=== PATIENT | male | born 1995 | race Caucasian/White ===

== ENCOUNTER 2016-08-02 10:17 | Emergency (ER) | payer BC ==
[~2016-08-02] VITALS: Ht 170.2 cm; Wt 73.5 kg
[~2016-08-02 10:17] MED LIST: ACET500C5 PO; AZIT250T94 PO; CIPR500T4 PO; LOPE2CAP PO; METR500T PO; NAPR-688 PO; NO MEDS
[2016-08-02 10:19] VITALS: Ht 170.2 cm; Wt 73.5 kg
[2016-08-02] MEDS ORDERED: IBUP-1542 PO (11:27)
[2016-08-02] MEDS ORDERED: IBUPROFEN 600 MG TAB PO ONE (11:30)
--- NOTE | 2016-08-02 11:54 | ERD ---
ER Documentation Chief Complaint Date/Time DATE: 08/02/16 TIME: 11:49 Chief Complaint right shoulder pain from playing soccer HPI Patient is a 21-year-old male who presents to the ED with right shoulder pain after playing soccer yesterday. He states that he fell on his shoulder and developed pain to the right shoulder. He states that he is able to move his arm in all directions but with pain. Denies fever chills. Denies radiation of pain down his arm. Denies pain in his elbow or wrist or neck. No previous injury to his shoulder in the past. Denies numbness or tingling. He is not taking anything for his symptoms. ROS All systems reviewed and are negative except as per history of present illness. Medications Home Meds Active Scripts Ibuprofen* (Motrin*) 600 Mg Tab, 600 MG PO Q6, #30 TAB Prov:ANNY LAU PA-C 08/02/16 Naproxen* (Naproxen*) 500 Mg Tablet, 500 MG PO BID, #10 TAB Prov:MELITON NARAYAN DO 02/11/16 Acetaminophen* (Tylophen*) 500 Mg Capsule, 1 CAP PO Q6H Y for PAIN AND OR ELEVATED TEMP, #16 CAP Prov:RENAE HERNANDEZ MD 01/26/16 Loperamide Hcl* (Imodium*) 2 Mg Capsule, 2 MG PO .AFTER EA LOOSE BM Y for DIARRHEA, #10 TAB Prov:RENAE HERNANDEZ MD 01/26/16 Metronidazole* (Flagyl*) 500 Mg Tablet, 500 MG PO BID for 7 Days, TAB Prov:RENAE HERNANDEZ MD 01/26/16 Azithromycin* (Zithromax*) 250 Mg Tablet, 250 MG PO .ZPACK DIRECTED, #6 TAB TAKE 500 MG (2 TABS) THE FIRST DAY THEN 250 MG (1 TAB) DAYS 2-5 Prov:RENAE HERNANDEZ MD 01/26/16 Ciprofloxacin Hcl* (Ciprofloxacin Hcl*) 500 Mg Tablet, 500 MG PO BID for 3 Days , TAB Prov:JLUIS CONSTANTINO NP 07/30/15 Reported Medications [No Meds ] No Conflict Check 01/09/13 Allergies Allergies: Uncoded Allergies: BEE STING (Allergy, Mild, 07/07/13) PMhx/Soc History of Surgery: No Anesthesia Reaction: No Hx Neurological Disorder: No Hx Respiratory Disorders: No Hx Cardiac Disorders: No Hx Psychiatric Problems: No Hx Miscellaneous Medical Probl: No Hx Alcohol Use: No Hx Substance Use: No Hx Tobacco Use: No Smoking Status: Never smoker FmHx Family History: No coronary disease, No diabetes, No other Physical Exam Vitals Vital Signs Date Time Temp Pulse Resp B/P Pulse Ox O2 Delivery O2 Flow Rate FiO2 08/02/16 10:19 97.3 61 18 112/59 98 Physical Exam GENERAL: Well-developed, well-nourished male. Appears in no acute distress. LUNG: Clear to auscultation bilaterally. No rhonchi, wheezing, rales or coarse breath sounds. HEART: Regular rate and rhythm. No murmurs, rubs or gallops. Extremities: Equal pulses bilaterally. No peripheral clubbing, cyanosis or edema. No unilateral leg swelling. Tender to right shoulder. No deformities or step-offs noted. Flexion- extension is within normal limits but with pain. No snuffbox tenderness. No pain above or below his shoulder. No elbow pain. Tenderness with empty can test. No redness or swelling. No signs of infection. No open wounds. No lacerations. No snuffbox tenderness. No pain in his elbow or wrist or fingers. Radius ulnar and median nerve intact. NEUROLOGIC: Alert and oriented. Moving all four extremities. 5/5 strength in all extremities. Normal speech. Steady gait. SKIN: Normal color. Warm and dry. No rashes or lesions. Capillary refill < 2 seconds Results 24 hrs Current Medications Medications (Trade) Dose Ordered Sig/Rafa Route PRN Reason Start Time Stop Time Status Last Admin Dose Admin Ibuprofen (Motrin) 600 mg ONCE ONCE PO 08/02/16 11:30 08/02/16 11:31 DC 08/02/16 11:18 Procedures/MDM ER COURSE: I kept the patient and/or family informed of laboratory and diagnostic imaging results throughout the emergency room course. EKG, MONITORS, & DIAGNOSTIC IMAGING: [place] [id number] Radiology Main Line: [phone] DIAGNOSTIC IMAGING REPORT Patient: FAWN GAVIN : 1995 Age: 21 Sex: M MR #: [id number] DOS: 08/02/16 1113 Ordering MD: ANNY LAU PA-C Location: [facility] Room/Bed: PROCEDURE: XR right Shoulder. CLINICAL INDICATION: Trauma, right shoulder pain TECHNIQUE: 4 views of the right shoulder are available for review. COMPARISON: None available FINDINGS: There is no evidence of acute fracture. There is suggestion of posterior subluxation and mild elevation of the distal clavicle concerning for acromioclavicular joint injury. The visualized right lung is clear. The soft tissues are grossly unremarkable. IMPRESSION: 1. Concern for acromioclavicular joint injury, possibly high grade, with posterior and superior subluxation of the distal clavicle. CT may offer additional detail as clinically indicated. 2. No radiographic evidence of acute osseous abnormality. RPTAT: UU .Ramin Pierre MD, MD Date Time Electronically viewed and signed by .Ramin Pierre MD, on 08/02/2016 12: 06 .K/ CC: ANNY LAU PA-C [place] [id number] Radiology Main Line: [phone] DIAGNOSTIC IMAGING REPORT Patient: FAWN GAVIN : 1995 Age: 21 Sex: M MR #: [id number] DOS: 08/02/16 1232 Ordering MD: ANNY LAU PA-C Location: [facility] Room/Bed: PROCEDURE: CT of the right shoulder CLINICAL INDICATION: Right shoulder pain TECHNIQUE: Axial images through the right shoulder without IV contrast. Coronal and sagittal reformats. Images were interpreted at an independent PACS workstation. CTDI 15.88 mGy DLP 31 4.65 mGy-cm One or more of the following dose reduction techniques were used: Automated exposure control Adjustment of the mA and / or kV according to patient size Use of iterative reconstruction technique. COMPARISON: Radiographs of the right shoulder dated August 02, 2016 FINDINGS: There is slight elevation of the distal clavicle with respect to the acromion and there is a moderate amount of overlying subcutaneous soft tissue swelling at the acromioclavicular joint (axial and 16 and coronal 110). The coracoclavicular ligaments are not well assessed on CT but no gross abnormality is identified. There is no evidence of acute fracture. The visualized right lung is clear. There is no lymphadenopathy. There is no muscle atrophy. Rotator cuff tendon insertions are not well assessed on CT. IMPRESSION: 1. Slight elevation of the distal clavicle with respect to the acromion and overlying soft tissue swelling, query recent acromioclavicular joint injury, likely grade II. MRI may provide additional detail as clinically indicated. 2. No CT evidence of acute fracture. RPTAT: UU .Ramin Pierre MD, MD Date Time Electronically viewed and signed by .Ramin Pierre MD, on 08/02/2016 13: 24 .K/ CC: ANNY LAU PA-C PROCEDURES: ED shoulder immobilizer. Neurovascular intact post-immobilizer placement. MEDICATIONS: Ibuprofen. Patient tolerated medication with no adverse reaction. MEDICAL DECISION MAKING: This is a 21-year-old male who presents with right shoulder pain. Vital signs were reviewed. Patient is afebrile. Patient is not hypoxic. Patient is not toxic or ill-appearing. X-ray is read by radiologist shows a concern for acromioclavicular joint injury, possible high-grade, with posterior and superior subluxation of the distal clavicle. CT may offer additional detail as clinically indicated. No radiographic evidence of acute osseous abnormality. I consulted with Dr. Shcaffer regarding this results who read the results and looked at xrays and a CT scan was then ordered. CT scan as read by radiologist shows slight elevation of the distal clavicle respect to the acromion and overlying soft tissue swelling, query recent acromioclavicular joint injury, likely grade 2. MRI may provide additional details clinically indicated. No CT evidence of acute fracture. Therefore, shoulder was placed in a shoulder immobilizer. Low suspicion for dislocation, fracture, septic joint, compartment syndrome, osteomyelitis, cellulitis, avascular necrosis, neurological injury, vascular injury, tendon laceration. Patient to follow-up with orthopedics in 1-2 days. DISCHARGE: At this time, patient is stable for discharge and outpatient management with no new complaints during the ER course. Patient was sent home with shoulder immobilizer, ibuprofen and to follow-up with orthopedics in 1-2 days for further evaluation and treatment. CDs of both his x-ray and CT scan were given to patient. Patient understands and agrees with plan and will be following up with orthopedics today for an appointment tomorrow. Note for work was also given to patient. Patient will be discharged home with instructions to recheck for new or worsening symptoms such as fever, nausea, weakness, LOC and to follow up with primary care in the next 1-2 days. Patient was advised to return to the ER for any new or worsening symptoms. Plan was discussed and patient and/ or family understands and agrees. Home instructions were given. Departure Diagnosis: Primary Impression: Shoulder pain Laterality: right Chronicity: acute Qualified Code: M25.511 - Acute pain of right shoulder Additional Impression: Acromioclavicular joint separation, type 2 Encounter type: initial encounter Laterality: right Qualified Code: S43.101A - Acromioclavicular joint separation, type 2, right, initial encounter Condition: Stable Patient Instructions: Shoulder Pain (Uncertain Cause) Referrals: NO PRIMARY,CARE PHYSICIAN (PCP) [facility] Urgent Care 7 a.m.- 11 p.m. Every Day of the Week NO APPOINTMENT OR AUTHORIZATION NEEDED [facility] Hours: Mon-Fri 9:00 AM - 5:00 PM Additional Instructions: Call your primary care doctor TOMORROW for an appointment during the next 1-2 days.See the doctor sooner or return here if your condition worsens before your appointment time. Follow up with orthopedics in 1 year. ANNY LAU PA-C Aug 02, 2016 11:53
--- NOTE | 2016-08-02 12:06 | RADRPT ---
PROCEDURE: XR right Shoulder. CLINICAL INDICATION: Trauma, right shoulder pain TECHNIQUE: 4 views of the right shoulder are available for review. COMPARISON: None available FINDINGS: There is no evidence of acute fracture. There is suggestion of posterior subluxation and mild eleva tion of the distal clavicle concerning for acromioclavicular joint injury. The visualized right he g is clear. The soft tissues are grossly unremarkable. IMPRESSION: 1. Concern for acromioclavicular joint injury, possibly high grade, with posterior and superior subl uxation of the distal clavicle. CT may offer additional detail as clinically indicated. 2. No radiographic evidence of acute osseous abnormality. RPTAT: UU .Ramin Pierre MD, MD Date Time Electronically viewed and signed by .Ramin Pierre MD, on 08/02/2016 12:06 .K/
--- NOTE | 2016-08-02 13:25 | RADRPT ---
PROCEDURE: CT of the right shoulder CLINICAL INDICATION: Right shoulder pain TECHNIQUE: Axial images through the right shoulder without IV contrast. Coronal and sagittal ref ormats. Images were interpreted at an independent PACS workstation. CTDI 15.88 mGy DLP 31 4.65 mGy-cm One or more of the following dose reduction techniques were used: Automated exposure control Adjustment of the mA and / or kV according to patient size Use of iterative reconstruction technique. COMPARISON: Radiographs of the right shoulder dated August 02, 2016 FINDINGS: There is slight elevation of the distal clavicle with respect to the acromion and there is a moderat e amount of overlying subcutaneous soft tissue swelling at the acromioclavicular joint (axial and 16 and coronal 110). The coracoclavicular ligaments are not well assessed on CT but no gross abnormal ity is identified. There is no evidence of acute fracture. The visualized right lung is clear. There is no lymphadenopathy. There is no muscle atrophy. Rota tor cuff tendon insertions are not well assessed on CT. IMPRESSION: 1. Slight elevation of the distal clavicle with respect to the acromion and overlying soft tissue s welling, query recent acromioclavicular joint injury, likely grade II. MRI may provide additional d etail as clinically indicated. 2. No CT evidence of acute fracture. RPTAT: UU .Ramin Pierre MD, Date Time Electronically viewed and signed by .Ramin Pierre MD, on 08/02/2016 13:24 .K/
[2016-08-02 14:05] VITALS: BP 118/71; PULSE 77; RESP 18; TEMP 98.2
== END 2016-08-02 14:06 | disposition home or self-care (01) ==
LOC: FTE 10:17
DX: S43.101A Unspecified dislocation of right acromioclavicular joint, initial encounter (principal); W19.XXXA Unspecified fall, initial encounter; Y92.9 Unspecified place or not applicable
CPT/HCPCS: 73200

== ENCOUNTER 2017-05-13 11:14 | Emergency (ER) | payer BC ==
[~2017-05-13] VITALS: Ht 177.8 cm; Wt 73.1 kg
[~2017-05-13 11:14] MED LIST changes: +IBUP-1542 PO
[2017-05-13 11:20] VITALS: Ht 177.8 cm; Wt 73.1 kg
[2017-05-13] MEDS ORDERED: IBUPROFEN 600 MG TAB PO ONE (12:00)
--- NOTE | 2017-05-13 12:22 | ERD ---
ER Documentation Chief Complaint Chief Complaint RIGHT KNEE PAIN/INJURY X 2 WEEKS; DID NOT TAKE ANY PAIN MEDS HPI 22-year-old male states that he had a knee injury during soccer 2 weeks ago and is now complaining of achy right-sided medial knee pain. Pain is worse when he walks or stands, especially after work he notices swelling to the right medial knee. It is localized pain. He denies any distinct trauma. No associated fevers or chills. ROS All systems reviewed and are negative except as per history of present illness. Medications Home Meds Active Scripts Ibuprofen* (Motrin*) 600 Mg Tab, 600 MG PO Q6, #30 TAB Prov:MAILE SINGER PA-C 05/13/17 Ibuprofen* (Motrin*) 600 Mg Tab, 600 MG PO Q6, #30 TAB Prov:ANNY LAU PA-C 08/02/16 Naproxen* (Naproxen*) 500 Mg Tablet, 500 MG PO BID, #10 TAB Prov:MELITON NARAYAN DO 02/11/16 Acetaminophen* (Tylophen*) 500 Mg Capsule, 1 CAP PO Q6H Y for PAIN AND OR ELEVATED TEMP, #16 CAP Prov:RENAE HERNANDEZ MD 01/26/16 Loperamide Hcl* (Imodium*) 2 Mg Capsule, 2 MG PO .AFTER EA LOOSE BM Y for DIARRHEA, #10 TAB Prov:RENAE HERNANDEZ MD 01/26/16 Metronidazole* (Flagyl*) 500 Mg Tablet, 500 MG PO BID for 7 Days, TAB Prov:RENAE HERNANDEZ MD 01/26/16 Azithromycin* (Zithromax*) 250 Mg Tablet, 250 MG PO .ZPACK DIRECTED, #6 TAB TAKE 500 MG (2 TABS) THE FIRST DAY THEN 250 MG (1 TAB) DAYS 2-5 Prov:RENAE HERNANDEZ MD 01/26/16 Ciprofloxacin Hcl* (Ciprofloxacin Hcl*) 500 Mg Tablet, 500 MG PO BID for 3 Days , TAB Prov:JLUIS CONSTANTINO NP 07/30/15 Reported Medications [No Meds ] No Conflict Check 01/09/13 Allergies Allergies: Uncoded Allergies: BEE STING (Allergy, Mild, 07/07/13) PMhx/Soc Medical and Surgical Hx: pt denies Medical Hx History of Surgery: Yes (Rgt thumb, left knee) Anesthesia Reaction: No Hx Neurological Disorder: No Hx Respiratory Disorders: No Hx Cardiac Disorders: No Hx Psychiatric Problems: No Hx Miscellaneous Medical Probl: No Hx Alcohol Use: Yes (Occ) Hx Substance Use: Yes (Marijuana) Hx Tobacco Use: No Smoking Status: Never smoker Physical Exam Vitals Vital Signs Date Time Temp Pulse Resp B/P Pulse Ox O2 Delivery O2 Flow Rate FiO2 05/13/17 11:20 98.7 60 18 113/69 99 Physical Exam General: Well-developed, well-nourished. The patient appears in no acute distress. HEENT: Head is normocephalic, atraumatic. No scleral icterus. Neck: Supple. Nontender. Lungs: Clear to auscultation. Normal air movement. Heart: Regular rate and rhythm. S1 and S2 are normal. No murmurs, gallops, or rubs. Abdomen: Nondistended. Extremities: Right knee has full range of motion flexion extension, no bony deformities, no warmth, no erythema. There is a small right medial knee effusion appreciated. Valgus varus stress test negative. Neurologic: Alert and oriented 3. No focal deficits. Normal speech and gait. Skin: Normal turgor. No rash or lesions. Results 24 hrs Current Medications Medications (Trade) Dose Ordered Sig/Rafa Route PRN Reason Start Time Stop Time Status Last Admin Dose Admin Ibuprofen (Motrin) 600 mg ONCE ONCE PO 05/13/17 12:00 05/13/17 12:01 DC 05/13/17 12:02 DIAGNOSTIC IMAGING REPORT Patient: FAWN GAVIN : 1995 Age: 22 Sex: M MR #: [id number] DOS: 05/13/17 1157 Ordering MD: MAILE SINGER PA-C Location: [facility] Room/Bed: PROCEDURE: XR Knee. CLINICAL INDICATION: Trauma 2 weeks ago TECHNIQUE: Three views of the right knee are available for review. COMPARISON: None available FINDINGS: The medial and lateral femorotibial compartments are preserved, as is the patellofemoral compartment. There is no acute osseous abnormality, marginal erosion or evidence of fracture. Limited evaluation for a joint effusion.. IMPRESSION: 1. No acute osseous abnormality. RPTAT: HH .Lavell Cartagena MD, MD Date Time Electronically viewed and signed by .Lavell Cartagena MD, on 05/13/2017 13:07 .d/ CC: MAILE SINGER PA-C Procedures/MDM ED course: Patient was given ibuprofen for pain. Right knee was placed in Kee wrap. Splint Assessment: Neurovascularly intact post splint placement with good fit. Medical decision makin-year-old male comes in with a right knee injury, most consistent with a knee sprain. X-rays today are normal. No evidence of fracture, dislocation, meniscal injury, signs of infection, septic joint, gout, osteomyelitis. Departure Diagnosis: Primary Impression: Knee injury Condition: Good MAILE SINGER PA-C May 13, 2017 12:22
--- NOTE | 2017-05-13 13:08 | RADRPT ---
PROCEDURE: XR Knee. CLINICAL INDICATION: Trauma 2 weeks ago TECHNIQUE: Three views of the right knee are available for review. COMPARISON: None available FINDINGS: The medial and lateral femorotibial compartments are preserved, as is the patellofemoral compartment . There is no acute osseous abnormality, marginal erosion or evidence of fracture. Limited evaluati on for a joint effusion.. IMPRESSION: 1. No acute osseous abnormality. RPTAT: HH .Lavell Cartagena MD, MD Date Time Electronically viewed and signed by .Lavell Cartagena MD, MD on 05/13/2017 13:07 .d/
[2017-05-13] MEDS ORDERED: IBUP-1542 PO (13:23)
== END 2017-05-13 13:30 | disposition home or self-care (01) ==
LOC: FTE 11:14
DX: S89.91XA Unspecified injury of right lower leg, initial encounter (principal); X58.XXXA Exposure to other specified factors, initial encounter; Y92.9 Unspecified place or not applicable
CPT/HCPCS: 73562

== ENCOUNTER 2017-07-29 20:14 | Emergency (ER) | END 2017-07-29 20:35 | disposition left against medical advice (07) ==

== ENCOUNTER 2017-07-30 08:10 | Emergency (ER) | END 2017-07-30 09:18 | disposition home or self-care (01) ==

== ENCOUNTER 2017-12-17 19:21 | Emergency (ER) | END 2017-12-17 23:38 | disposition home or self-care (01) ==